=== PATIENT | female | born 1955 | race African-American/Black ===

== ENCOUNTER 2018-08-06 13:13 | Day surgery (SDC) | payer OTHER ==
[2018-08-05 10:30] VITALS: BMI 32.1
[2018-08-06] MEDS ORDERED: oxyCODONE HCL 5 MG TABLET PO PRN ×2 (13:54)
[2018-08-06] MEDS ORDERED: ONDANSETRON 4 MG/2 ML VIAL IVPUSH PRN (13:54)
[2018-08-06] MEDS ORDERED: LACTATED RINGERS SOLUTION 1,000 ML IV SCH (14:00)
--- NOTE | 2018-08-06 14:28 | HP ---
Admitting History and Physical - Admission Chief Complaint: Abnormal sonogram History of Present Illness: 63 yo Para 3, with suspicion of endometrial polyp is pre op for D&C hysteroscopy. History Source: Patient Limitations to Obtaining History: No Limitations - Past Medical History ...: No ...Para: 3 - Past Surgical History Past Surgical History: Yes: None - Smoking History Smoking history: Never smoked Have you smoked in the past 12 months: No - Alcohol/Substance Use Hx Alcohol Use: No Home Medications - Allergies Allergies/Adverse Reactions: Allergies Allergy/AdvReac Type Severity Reaction Status Date / Time ibuprofen Allergy Severe Rash Verified 08/06/18 13:50 ciprofloxacin [From Cipro] Allergy Verified 08/06/18 13:51 Sulfa (Sulfonamide Allergy Verified 08/06/18 13:51 Antibiotics) Tetracyclines Allergy Verified 08/06/18 13:51 - Home Medications Home Medications: Ambulatory Orders [place] Hct 32-25 mg Tablet 32 mg PO DAILY 08/05/18 Maxalt 10 mg PO DAILY 08/05/18 Metformin HCl 500 mg PO TID 08/05/18 Tapentadol Hydrochloride [Nucynta -] 50 mg PO PRN PRN 08/06/18 Family Disease History - Family Disease History Family History: Unremarkable Review of Systems - Review of Systems Constitutional: reports: No Symptoms Eyes: reports: No Symptoms HENT: reports: No Symptoms Neck: reports: No Symptoms Cardiovascular: reports: No Symptoms Respiratory: reports: No Symptoms Gastrointestinal: reports: No Symptoms Genitourinary: reports: No Symptoms Breasts: reports: No Symptoms Reported Integumentary: reports: No Symptoms Neurological: reports: No Symptoms Endocrine: reports: No Symptoms Psychiatric: reports: No Symptoms Pain Intensity: 0 Physical Examination Vital Signs: Vital Signs Temperature 98.5 F 08/06/18 13:48 Pulse Rate 83 08/06/18 13:48 Respiratory Rate 18 08/06/18 13:48 Blood Pressure 123/86 08/06/18 13:48 O2 Sat by Pulse Oximetry (%) 96 08/06/18 13:48 Constitutional: Yes: Well Nourished Eyes: Yes: Conjunctiva Clear HENT: Yes: Atraumatic Neck: Yes: Supple Cardiovascular: Yes: Regular Rate and Rhythm Respiratory: Yes: Regular Gastrointestinal: Yes: Normal Bowel Sounds Musculoskeletal: Yes: WNL Extremities: Yes: WNL Neurological: Yes: Alert, Oriented ...Motor Strength: WNL Psychiatric: Yes: Alert, Oriented Problem List - Problems (1) Endometrial polyp Code(s): N84.0 - POLYP OF CORPUS UTERI Assessment/Plan Endometrial polyp Pre op for D&C hysteroscopy Consent signed Anesthesia to see patient
[2018-08-06] MEDS ORDERED: fentaNYL CITRATE 250 MCG/5 ML VIAL ONE (14:42)
[2018-08-06] MEDS ORDERED: PROPOFOL 20 ML ONE ×4 (14:43)
[2018-08-06] MEDS ORDERED: GLYCOPYRROLATE 0.2 MG/1 ML VIAL ONE (15:04)
[2018-08-06] MEDS ORDERED: DEXAMETHASONE SOD PHOSPHATE 4 MG/1 ML VIAL ONE (15:18)
[2018-08-06] MEDS ORDERED: ONDANSETRON 4 MG/2 ML VIAL ONE (15:18)
--- NOTE | 2018-08-06 15:21 | OP ---
Operative Note - Note: Operative Date: 08/06/18 Pre-Operative Diagnosis: Endometrial polyp Operation: D&C Hysteroscopy Findings: Submucosal myoma Post-Operative Diagnosis: Other (Submucosal myoma) Surgeon: Bettye Saucedo Anesthesia: General Specimens Removed: Endometrial curettings Estimated Blood Loss (mls): 1 Operative Report Dictated: Yes
--- NOTE | 2018-08-06 15:48 | OP ---
DATE OF OPERATION: 08/06/2018 PREOPERATIVE DIAGNOSIS: Endometrial polyp. POSTOPERATIVE DIAGNOSIS: Submucosal myoma. SURGEON: Bettye Saucedo M.D. ANESTHESIA: General. COMPLICATIONS: None. ESTIMATED BLOOD LOSS: 1 mL. PROCEDURE: Patient was taken to the operating room where general anesthesia was administered. Patient was then placed in lithotomy position. She was then prepped and draped in proper sterile fashion. A weighted speculum was placed in the vagina. The anterior lip of the cervix was grasped with a single-toothed tenaculum. Then the uterus was sounded to 7 cm. Then the 5 mm hysteroscope was then gently introduced into the uterine cavity. The cavity was partially visualized due to the presence of the large submucosal fibroid. There was no polyp noted. A sharp curettage was then performed. Then the instruments were removed. The patient was taken out of lithotomy position. She was taken to PACU in stable condition. Pathology, endometrial curettings. BETTYE SAUCEDO M.D. [id number]
[2018-08-06] MEDS ORDERED: oxyCODONE HCL 5 MG TABLET ONE (17:16)
[2018-08-06] MEDS ORDERED: oxyCODONE HCL 5 MG TABLET PO ONE (17:18)
[2018-08-06 18:26] VITALS: BP 135/66; PULSE 94; TEMP 97.2
--- NOTE | 2018-08-10 17:12 | PATH ---
Surgical Pathology Report Patient Name: LEV [facility]. Rec. #: [id number] /Age/Gender: 1955 (Age: 63) / F Account: [id number] Location: [facility] Taken: 08/06/2018 Received: 08/07/2018 Reported: 08/10/2018 Physicians: Bettye Saucedo M.D. Specimen(s) Received ENDOMETRIAL CURETTINGS Clinical History Endometrial polyp Final Diagnosis ENDOMETRIAL CURETTINGS: PREDOMINANTLY ENDOCERVICAL TISSUE AND METAPLASTIC SQUAMOUS EPITHELIUM ADMIXED WITH MUCUS. SCANTY STRIPS OF SUPERFICIAL WEAKLY PROLIFERATIVE ENDOMETRIAL GLAND WITHOUT STROMA PRESENT. Electronically Signed Moses Mayers M.D. Gross Description Received in formalin labeled "endometrial curettings," is a 1.5 x 1.5 x 0.2 cm aggregate of bullard-brown soft tissue fragments admixed with blood-tinged mucous. The formalin is filtered and the specimen is entirely submitted in one cassette. /08/07/2018 [facility]08/07/2018
== END 2018-08-06 18:15 | disposition home or self-care (01) ==
LOC: JASU-SURG 13:13
PROVIDERS: ATTEND Obstetrics & Gynecology
PROC: 0UDB7ZX Extraction of Endometrium, Via Natural or Artificial Opening, Diagnostic (ICD-10-PCS; principal; 2018-08-06 14:30)
PROC: 0UJD8ZZ Inspection of Uterus and Cervix, Via Natural or Artificial Opening Endoscopic (ICD-10-PCS; 2018-08-06 14:30)
DX: D25.0 Submucous leiomyoma of uterus (principal)
CPT/HCPCS: 82962; 88305-TC; 94760